=== PATIENT | male | born 1965 | race Caucasian/White ===

== ENCOUNTER → 2016-11-07 | Outpatient (CLI) | payer BC ==
--- NOTE | 2016-11-07 12:33 | CT ---
EXAMINATION TYPE: CT abdomen pelvis w con DATE OF EXAM: 11/07/2016 11:45 AM COMPARISON: NONE INDICATION: generalized abd pain DLP: 903 mGycm, Automated exposure control for dose reduction was used. CONTRAST: 100 ml mL of Omnipaque 300. Study performed with Oral Contrast TECHNIQUE: Axial images were obtained from above the diaphragm to the pubic rami in the axial plane a t 5 mm thick sections. Reconstructed images are reviewed on the computer in the coronal plane. FINDINGS: Limited CT sections are obtained the lung bases. The lung bases are clear. CT ABDOMEN: Liver: Tiny cyst within the inferior segment cortical region of the right tip of the liver may be pre sent. Liver otherwise appears unremarkable Spleen: Normal Pancreas: Normal Adrenal glands: The adrenal glands are normal. Gallbladder: Normal Kidneys: No masses are evident. No hydronephrosis is present. No cysts are present. Delayed images were obtained through the kidneys. A punctate cortical renal cyst within the mid right kidney is richard dent Aorta: Normal Inferior vena cava: Normal. CT PELVIS: Loops of bowel within the abdomen and pelvis are normal. There are loops of bowel which are incom pletely distended or lack oral contrast limiting their evaluation. Appendix: Not identified Urinary bladder: Normal. Genitourinary structures: Prostate is prominent. Osseous structures: No suspicious lytic or sclerotic lesions. IMPRESSIONS: 1. Prostate hypertrophy. 2. Tiny cortical renal cyst on the right with a tiny suspected cyst within the right tip of the liver
== END | disposition home or self-care (01) ==
LOC: RADCTMAIN 09:42
PROVIDERS: ATTEND Internal Medicine
DX: N40.0 Benign prostatic hyperplasia without lower urinary tract symptoms (principal); N28.1 Cyst of kidney, acquired
CPT/HCPCS: 74177; Q9967

== ENCOUNTER → 2016-12-05 | Outpatient (CLI) | payer BC ==
--- NOTE | 2016-12-05 10:04 | US ---
EXAMINATION TYPE: US prostate transrectal DATE OF EXAM: 12/05/2016 8:32 AM COMPARISON: Recent CT November 07, 2016 CLINICAL HISTORY: N429 disorder of prostate. CT on PACS stated prostate hypertrophy; no PSA lab value s available today; patient stated only voids once during the night This examination was performed using the transrectal probe. EXAM MEASUREMENTS: Gland Size: 4.1 x 4.6 x 3.2cm Volume: 31.7ml Predicted PSA: 3.81ng.ml Actual PSA (if available):not available for referring physician TECHNOLOGIST IMPRESSION: mildly enlarged as normal volume size is <30ml; Central Gland calcificatio ns are noted with cluster on right = 0.5 x 0.5 x 0.4cm; multiple Central Gland cysts are noted with l argest on left = 0.4 x 0.3 x 0.4cm. No hypoechoic areas are noted in Peripheral Zone. Initial images show seminal vesicles to appear grossly unremarkable. Prostate gland is slightly enlar ged in size confirmed on ultrasound. Some central zone calcification and tiny cysts are identified. N o worrisome hypoechoic nodule is evident. IMPRESSION: Prostate gland is slightly enlarged in size especially for patient's age, findings corre late with recent CT.
== END | disposition home or self-care (01) ==
LOC: RADUSMAIN 08:27
PROVIDERS: ATTEND Internal Medicine
DX: N42.9 Disorder of prostate, unspecified (principal)
CPT/HCPCS: 76872

== ENCOUNTER 2017-07-02 07:26 | Observation (INO) | payer BC ==
--- NOTE | 2017-07-02 07:41 | ED ---
General Adult HPI - General Chief complaint: Chest Pain Stated complaint: chest pain Time Seen by Provider: 07/02/17 07:40 Source: patient, RN notes reviewed, old records reviewed Mode of arrival: wheelchair Limitations: no limitations - History of Present Illness Initial comments: This is a 51-year-old male to yesterday for evaluation of chest pain. Chest pain shortness of breath. Patient has history of reflux, no history of high blood pressure and high cholesterol no diabetes strong family history. Patient has had prior admission and observation for cardiac evaluation before about 3 years ago. Patient states at that time stress tests was family understands within normal limits. Patient states that this time he does have chest pain, no fevers, no cough. No travel history no sick contacts. Patient also is suffering from shortness of breath. - Related Data Home Medications Medication Instructions Recorded Confirmed Lisdexamfetamine Dimesylate 30 mg PO DAILY 05/18/14 07/02/17 [Vyvanse] Omeprazole [Omeprazole] 20 mg PO BID 05/18/14 07/02/17 traZODone HCL [traZODone] 200 mg PO HS 05/18/14 07/02/17 Allergies Allergy/AdvReac Type Severity Reaction Status Date / Time No Known Allergies Allergy Verified 07/02/17 08:29 Review of Systems ROS Statement: Those systems with pertinent positive or pertinent negative responses have been documented in the HPI. ROS Other: All systems not noted in ROS Statement are negative. Past Medical History Past Medical History: GERD/Reflux Additional Past Medical History / Comment(s): adhd, gerd History of Any Multi-Drug Resistant Organisms: None Reported Past Surgical History: Adenoidectomy Additional Past Surgical History / Comment(s): abnormal growth removed in November (benign). 04/09 espogus stretched and abnormal cyst removed from head in March of 2013. Past Anesthesia/Blood Transfusion Reactions: No Reported Reaction Past Psychological History: ADD/ADHD Smoking Status: Light tobacco smoker Past Alcohol Use History: Occasional Past Drug Use History: Marijuana - Past Family History Father Family Medical History: Congestive Heart Failure (CHF), CVA/TIA, Myocardial Infarction ([place]) Additional Family Medical History / Comment(s): Father was an alcoholic. Patients grandpa and grandma both had heart attacks. Mother Family Medical History: Cancer, Thyroid Disorder Additional Family Medical History / Comment(s): lung cancer. General Exam Limitations: no limitations General appearance: alert, in no apparent distress Head exam: Present: atraumatic, normocephalic, normal inspection Eye exam: Present: normal appearance, PERRL, EOMI. Absent: scleral icterus, conjunctival injection, periorbital swelling ENT exam: Present: normal exam, mucous membranes moist Neck exam: Present: normal inspection. Absent: tenderness, meningismus, lymphadenopathy Respiratory exam: Present: normal lung sounds bilaterally. Absent: respiratory distress, wheezes, rales, rhonchi, stridor Cardiovascular Exam: Present: regular rate, normal rhythm, normal heart sounds. Absent: systolic murmur, diastolic murmur, rubs, gallop, clicks GI/Abdominal exam: Present: soft, normal bowel sounds. Absent: distended, tenderness, guarding, rebound, rigid Extremities exam: Present: normal inspection, full ROM, normal capillary refill. Absent: tenderness, pedal edema, joint swelling, calf tenderness Back exam: Present: normal inspection Neurological exam: Present: alert, oriented X3, CN II-XII intact Psychiatric exam: Present: normal affect, normal mood Skin exam: Present: warm, dry, intact, normal color. Absent: rash Course Vital Signs 07/02/17 07/02/17 07/02/17 07:28 07:37 07:46 Temperature 97.6 F Pulse Rate 74 67 Pulse Rate [ 65 Speech Correction Consultant ] Respiratory 20 18 Rate Blood Pressure 130/88 124/81 O2 Sat by Pulse 100 100 Oximetry 07/02/17 08:41 Temperature Pulse Rate 68 Pulse Rate [ Speech Correction Consultant ] Respiratory 18 Rate Blood Pressure 125/83 O2 Sat by Pulse 100 Oximetry - Reevaluation(s) Reevaluation #1: 07/02/17 09:30 At this point patient remains with chest pain EKG Findings - EKG Comments: EKG Findings:: Normal sinus rhythm rate of 71, OH 164, QRS 90, QTC 417. Repeat EKG shows no change in morphology, normal sinus rhythm rate of 71, OH 70, QRS 94 , QTC 419 Medical Decision Making - Medical Decision Making 51-year-old ER for evaluation of chest pain, history and family history of cardiac disease, patient admitted for cardiac observation, anticoagulation 0 troponins, initial EKG and troponin are negative - Lab Data Result diagrams: 07/02/17 07:43 07/02/17 07:43 Lab Results 07/02/17 07/02/17 07/02/17 Range/Units 07:43 07:43 07:43 WBC 5.0 (3.8-10.6) k/uL RBC 4.73 (4.30-5.90) m/uL Hgb 14.7 (13.0-17.5) gm/dL Hct 43.3 (39.0-53.0) % MCV 91.7 (80.0-100.0) fL MCH 31.2 (25.0-35.0) pg MCHC 34.0 (31.0-37.0) g/dL RDW 13.7 (11.5-15.5) % Plt Count 246 (150-450) k/uL Neutrophils % 63 % Lymphocytes % 25 % Monocytes % 5 % Eosinophils % 4 % Basophils % 1 % Neutrophils # 3.1 (1.3-7.7) k/uL Lymphocytes # 1.3 (1.0-4.8) k/uL Monocytes # 0.3 (0-1.0) k/uL Eosinophils # 0.2 (0-0.7) k/uL Basophils # 0.0 (0-0.2) k/uL PT (9.0-12.0) sec INR (<1.2) APTT (22.0-30.0) sec D-Dimer (<0.60) mg/L FEU Sodium 141 (137-145) mmol/L Potassium 4.2 (3.5-5.1) mmol/L Chloride 103 (98-107) mmol/L Carbon Dioxide 27 (22-30) mmol/L Anion Gap 11 mmol/L BUN 12 (9-20) mg/dL Creatinine 1.14 (0.66-1.25) mg/dL Est GFR (MDRD) Af Amer >60 (>60 ml/min/1.73 sqM) Est GFR (MDRD) Non-Af >60 (>60 ml/min/1.73 sqM) Glucose 96 (74-99) mg/dL Calcium 9.2 (8.4-10.2) mg/dL Magnesium 1.9 (1.6-2.3) mg/dL Total Bilirubin 0.6 (0.2-1.3) mg/dL AST 22 (17-59) U/L ALT 49 (21-72) U/L Alkaline Phosphatase 73 (38-126) U/L Total Creatine Kinase 101 (55-170) U/L CK-MB (CK-2) 1.2 (0.0-2.4) ng/mL CK-MB (CK-2) Rel Index 1.2 Troponin I <0.012 (0.000-0.034) ng/mL NT-Pro-B Natriuret Pep pg/mL Total Protein 7.0 (6.3-8.2) g/dL Albumin 4.3 (3.5-5.0) g/dL Lipase 111 (23-300) U/L 07/02/17 07/02/17 Range/Units 07:43 07:43 WBC (3.8-10.6) k/uL RBC (4.30-5.90) m/uL Hgb (13.0-17.5) gm/dL Hct (39.0-53.0) % MCV (80.0-100.0) fL MCH (25.0-35.0) pg MCHC (31.0-37.0) g/dL RDW (11.5-15.5) % Plt Count (150-450) k/uL Neutrophils % % Lymphocytes % % Monocytes % % Eosinophils % % Basophils % % Neutrophils # (1.3-7.7) k/uL Lymphocytes # (1.0-4.8) k/uL Monocytes # (0-1.0) k/uL Eosinophils # (0-0.7) k/uL Basophils # (0-0.2) k/uL PT 11.3 (9.0-12.0) sec INR 1.1 (<1.2) APTT 25.4 (22.0-30.0) sec D-Dimer 0.18 (<0.60) mg/L FEU Sodium (137-145) mmol/L Potassium (3.5-5.1) mmol/L Chloride (98-107) mmol/L Carbon Dioxide (22-30) mmol/L Anion Gap mmol/L BUN (9-20) mg/dL Creatinine (0.66-1.25) mg/dL Est GFR (MDRD) Af Amer (>60 ml/min/1.73 sqM) Est GFR (MDRD) Non-Af (>60 ml/min/1.73 sqM) Glucose (74-99) mg/dL Calcium (8.4-10.2) mg/dL Magnesium (1.6-2.3) mg/dL Total Bilirubin (0.2-1.3) mg/dL AST (17-59) U/L ALT (21-72) U/L Alkaline Phosphatase (38-126) U/L Total Creatine Kinase (55-170) U/L CK-MB (CK-2) (0.0-2.4) ng/mL CK-MB (CK-2) Rel Index Troponin I (0.000-0.034) ng/mL NT-Pro-B Natriuret Pep 12 pg/mL Total Protein (6.3-8.2) g/dL Albumin (3.5-5.0) g/dL Lipase (23-300) U/L - Radiology Data Radiology results: report reviewed (Test x-rays negative for acute disease), image reviewed Critical Care Time Critical Care Time: Yes Total Critical Care Time: 31 Disposition Clinical Impression: Chest pain, Unstable angina pectoris Disposition: ADMITTED IP TO THIS [facility] Condition: Undetermined Referrals: Jazmin Gonzalez MD [Primary Care Provider] - 1-2 days
[2017-07-02 08:00] LABS: Basophils % (A) 1 %; CH 32.2; CHCM 35.3; Eosinophils # (A) 0.2 k/uL (0-0.7); Eosinophils % (A) 4 %; HCT 43.3 % (39.0-53.0); HGB 14.7 gm/dL (13.0-17.5); Luc # (Auto) 0.11; Luc % (Auto) 2; Lymphocytes # (A) 1.3 k/uL (1.0-4.8); Lymphocytes % (A) 25 %; MCH 31.2 pg (25.0-35.0); MCV 91.7 fL (80.0-100.0); Mean Platelet Volume 8.6; Monocytes # (A) 0.3 k/uL (0-1.0); Monocytes % (A) 5 %; Neutrophils # (A) 3.1 k/uL (1.3-7.7); Neutrophils % (A) 63 %; RBC 4.73 m/uL (4.30-5.90); RDW 13.7 % (11.5-15.5); WBC (Perox) 4.89
[2017-07-02 08:11] LABS: ALT 49 U/L (21-72); AST 22 U/L (17-59); Alkaline Phosphatase 73 U/L (38-126); Anion Gap 11 mmol/L; Blood Urea Nitrogen 12 mg/dL (9-20); Calcium 9.2 mg/dL (8.4-10.2); Carbon Dioxide 27 mmol/L (22-30); Chloride 103 mmol/L (98-107); Glucose 96 mg/dL (74-99); Magnesium 1.9 mg/dL (1.6-2.3); Non-African American GFR(MDRD) >60 (>60 ml/min/1.73 sqM); Potassium 4.2 mmol/L (3.5-5.1); Sodium 141 mmol/L (137-145); Total Bilirubin 0.6 mg/dL (0.2-1.3)
--- NOTE | 2017-07-02 08:13 | XR ---
EXAMINATION TYPE: XR chest 2V DATE OF EXAM: 07/02/2017 COMPARISON: Prior chest x-ray 05/18/2014 HISTORY: Chest pain TECHNIQUE: Frontal and lateral views of the chest are obtained. FINDINGS: There is no focal air space opacity, pleural effusion, or pneumothorax seen. The cardiac silhouette size is within normal limits. There are overlying cardiac leads. There is a spinal curvatu re, patient may be slightly rotated. The osseous structures are intact. IMPRESSION: No acute cardiopulmonary process.
[2017-07-02 08:15] LABS: INR 1.1 (<1.2); Partial Thromboplastin Time 25.4 sec (22.0-30.0); Prothrombin Time 11.3 sec (9.0-12.0)
[2017-07-02 08:25] LABS: Creatine Kinase 101 U/L (55-170)
[2017-07-02 08:31] VITALS: RESP 18
[2017-07-02 08:38] LABS: Creatine Kinase MB 1.2 ng/mL (0.0-2.4); Troponin I <0.012 ng/mL (0.000-0.034)
[2017-07-02] MEDS ORDERED: NITROGLYCERIN SL TABS 0.4 MG TAB SUBLINGUAL PRN (09:28)
[2017-07-02] MEDS ORDERED: ASPIRIN 81 MG PO STA (09:28)
[2017-07-02] MEDS ORDERED: HEPARIN SODIUM,PORCINE 5,000 UNIT/ML 1 ML VIAL IV PRN (09:28)
[2017-07-02] MEDS ORDERED: HEPARIN SODIUM,PORCINE 5,000 UNIT/ML 1 ML VIAL IV ONE (09:28)
[2017-07-02] MEDS ORDERED: HEPARIN SODIUM,PORCINE/D5W PMX 25,000 UNIT in DEXTROSE/WATER 1 500ML.BAG IV SCH (09:30)
[2017-07-02] MEDS ORDERED: CYCLOBENZAPRINE 5 MG TAB PO STA (10:26)
[2017-07-02] MEDS ORDERED: NAPROXEN 250 MG TAB PO SCH (10:30)
[2017-07-02] MEDS: PANTOPRAZOLE 40 MG TABLET PO SCH ×2 (11:12→18:33)
--- NOTE | 2017-07-02 11:56 | CONS ---
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 Today, he lifted 3 gallons of water and brought them from the truck to his office and after that developed severe pain in the left anterior chest almost in the intercostal area and the pain is sharp in nature. It seems to be getting worse when he sits up and leans forward and when he also tightens his pectoral muscles. The pain seems musculoskeletal, very focal, reproducible with certain movements. He is a very active person and with his usual physical activity he has not experienced any type of chest pain either in the recent or remote past. About three and half years ago, he had a stress test which was normal. There was no evidence of ischemia. He walked 12 minutes of exercise. At the time of my evaluation, he still has pain when he moves in a certain position but otherwise no pain at rest. He has been initiated on heparin which I have advised that it be stopped since it is a musculoskeletal pain. His initial troponin and other labs are normal. Resting comfortably. EKG is unremarkable. PAST MEDICAL HISTORY: Unremarkable for any major medical problems. Negative stress test in April of 2014 at 12 minutes of exercise. MEDICATIONS: At home this includes: 1. Omeprazole. 2. Trazodone. ALLERGIES: No known drug allergies. REVIEW OF SYSTEMS: Unremarkable other than above mentioned facts. EXAMINATION: Blood pressure is 128/70, pulse rate 70 per minute, regular HEENT unremarkable. Fundus was not examined by me. NECK: Supple. No JVD. I do not hear carotid bruits. No thyromegaly. Heart exam revealed S1, S2 heard normally. No rub, murmur or gallop. LUNGS: Clear. Chest wall tenderness is evident especially on certain position when he tightens his pectoral muscles. ABDOMEN: Soft, nontender. No organomegaly. Lower extremities reveal normal pulses. No edema. Central nervous system is normal. EKG revealed sinus mechanism no acute changes. LABORATORY DATA: Revealed initial troponin and D-dimer are unremarkable. All other labs are normal. IMPRESSION: 1. Musculoskeletal chest pain. Probably pulled an intercostal muscle when he lifted a heavy object. 2. History of some gastroesophageal reflux type symptoms. 3. Negative stress Cardiolite scan at 12 minutes of exercise 3 years ago. RECOMMENDATIONS: I am recommending that we not use heparin, perform serial troponins, use a muscle relaxant and nonsteroidals and if he does well, possible discharge tomorrow. Discussed my thoughts in detail with the patient and and his nurse. Thank you very much for the consult. EDEL / JAYLAN: [id number] /
[2017-07-02 14:16] LABS: Creatine Kinase 81 U/L (55-170)
[2017-07-02 14:29] LABS: Creatine Kinase MB 0.9 ng/mL (0.0-2.4); Troponin I <0.012 ng/mL (0.000-0.034)
[2017-07-02] MEDS ORDERED: methylPREDNISolone SOD SUCCI 125 MG/2 ML VIAL IV STA (14:40)
[2017-07-02] MEDS ORDERED: KETOROLAC 30 MG/ML 1 ML VIAL IVP STA (14:40)
[2017-07-02 15:39] VITALS: BP 111/63; PULSE 78; TEMP 98.1
--- NOTE | 2017-07-02 15:54 | P.HPIM ---
History of Present Illness H&P Date: 07/02/17 Chief Complaint: Chest pain A 51-year-old gentleman with no significant history of CAD comes in the hospital with sudden onset chest pain this morning at 7 AM. Patient apparently is extremely busy with work and does have some physical aspects apparently was taken up to 3 gallon R prior to that and thereafter noticed sudden pain on the left side of his chest and with concern for ACS as he has positive family history came in to the hospital for further workup EKG does not show ST-T changes initially Cardiac enzymes 1 was also negative Patient has had a stress test about 3 years ago which was negative At the time of my patient patient continues to have chest pain however states that it's worse with sitting up deep breathing and using pressure. Review of systems 14 point review of systems as mentioned above Physical exam Gen. appearance oriented 3 in no distress Neck is supple no JVD Lungs good air entry clear to auscultation no rhonchi or wheezing Heart S1-S2 heard regular rate and rhythm no murmurs appreciated Abdomen is soft nontender no organomegaly bowel sounds are intact Neurologically cranial nerves II-12 grossly intact no focal motor or sensory deficits noted Skin no abnormalities appreciated Assessment and plan # ADHD #3 chest pain likely musculoskeletal #4 GERD Plan Patient be given a dose of steroid and IV NSAID. cardiology service evaluated the patient. Once cardiac enzymes are negative negative patient can likely go home to rest for the next 2 days and to continue taking high-dose NSAIDs. 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 04/09 espogus stretched and abnormal cyst removed from head in March of 2013. skin tags removed from back-benign Past Anesthesia/Blood Transfusion Reactions: No Reported Reaction Past Psychological History: ADD/ADHD Smoking Status: Former smoker Past Alcohol Use History: Occasional Past Drug Use History: Marijuana Additional Drug Use History / Comment(s): Marijuana use occasionally. - Past Family History Father Family Medical History: Congestive Heart Failure (CHF), CVA/TIA, Myocardial Infarction ([place]) Additional Family Medical History / Comment(s): Father was an alcoholic. Patients grandpa and grandma both had heart attacks. Mother Family Medical History: Cancer, Thyroid Disorder Additional Family Medical History / Comment(s): lung cancer. Medications and Allergies Home Medications Medication Instructions Recorded Confirmed Type Lisdexamfetamine Dimesylate 30 mg PO DAILY 05/18/14 07/02/17 History [Vyvanse] Omeprazole 20 mg PO BID 05/18/14 07/02/17 History traZODone HCL 200 mg PO HS 05/18/14 07/02/17 History Ibuprofen [Motrin] 800 mg PO TID #20 tab 07/02/17 Rx Allergies Allergy/AdvReac Type Severity Reaction Status Date / Time No Known Allergies Allergy Verified 07/02/17 08:29 Physical Exam Vitals: Vital Signs Temp Pulse Pulse Pulse Resp BP BP 07/02/17 15:38 98.1 F 78 18 111/63 07/02/17 11:45 07/02/17 10:34 97.9 F 65 18 120/80 07/02/17 09:56 98.0 F 68 18 121/83 07/02/17 08:41 68 18 125/83 07/02/17 07:46 65 07/02/17 07:37 67 18 124/81 07/02/17 07:28 97.6 F 74 20 130/88 Pulse Ox 07/02/17 15:38 97 07/02/17 11:45 97 07/02/17 10:34 98 07/02/17 09:56 100 07/02/17 08:41 100 07/02/17 07:46 07/02/17 07:37 100 07/02/17 07:28 100 Intake and Output 07/02/17 07/02/17 07/02/17 06:59 14:59 22:59 Intake Total 360 Balance 360 Intake: Oral 360 Other: Voiding Method Toilet Weight 71.4 kg Patient Weight 07/03/17 06:59 Weight 71.4 kg Results CBC & Chem 7: 07/02/17 07:43 07/02/17 07:43 Thrombosis Risk Factor Assmnt - Choose All That Apply Any of the Below Risk Factors Present?: Yes Each Factor Represents 1 point: Age 41-60 years Thrombosis Risk Factor Assessment Total Risk Factor Score: 1 Thrombosis Risk Factor Assessment Level: Low Risk
[2017-07-02 18:23] LABS: Creatine Kinase 80 U/L (55-170)
[2017-07-02 18:37] LABS: Creatine Kinase MB 0.8 ng/mL (0.0-2.4); Troponin I <0.012 ng/mL (0.000-0.034)
[2017-07-02] MEDS ORDERED: traZODone HCL 100 MG TAB PO SCH (21:00)
[2017-07-03] MEDS ORDERED: ASPIRIN 81 MG PO SCH (09:00)
[2017-07-03] MEDS ORDERED: ASPIRIN 325 MG TAB PO SCH (09:00)
[2017-07-03] MEDS ORDERED: ATORVASTATIN 80 MG TAB PO SCH (09:00)
== END 2017-07-02 18:51 | disposition home or self-care (01) ==
LOC: EC 07:26 → 3OBS 09:28
PROVIDERS: ADMIT Hospitalist; ATTEND Hospitalist
DX: R07.89 Other chest pain (principal); K21.9 Gastro-esophageal reflux disease without esophagitis; F17.200 Nicotine dependence, unspecified, uncomplicated; F90.9 Attention-deficit hyperactivity disorder, unspecified type; Z79.899 Other long term (current) drug therapy; Z79.1 Long term (current) use of non-steroidal anti-inflammatories (NSAID); Z82.49 Family history of ischemic heart disease and other diseases of the circulatory system; Z81.1 Family history of alcohol abuse and dependence; Z80.1 Family history of malignant neoplasm of trachea, bronchus and lung; F12.90 Cannabis use, unspecified, uncomplicated
CPT/HCPCS: 99291; 96375; 96374; 36415; 93005; 85379; 83880; 80053; 82550; 82553; 83690; 83735; 84484; 85025; 85610; 85730; 71020; G0378; J1644 ×2; J2930; J1885

== ENCOUNTER 2019-01-09 10:01 | Day surgery (SDC) | payer BC ==
[2019-01-07 09:17] VITALS: BMI 21.5
[~2019-01-09 10:01] MED LIST: LACTATED RINGERS 1,000 ML IV SCH; LIDOCAINE 1% 20 ML VIAL (10MG/ML) FOR IV START INTRADERMA PRN
[2019-01-09 10:30] VITALS: TEMP 98.2
[2019-01-09] MEDS ORDERED: LIDOCAINE 1% INJ 10MG/ML (20 ML MDV) ONE (11:33)
[2019-01-09] MEDS ORDERED: PROPOFOL 10 MG/ML 20 ML VIAL IV ONE (11:33)
--- NOTE | 2019-01-09 11:55 | P.PCN ---
Date of Procedure: 01/09/19 Procedure(s) Performed: BRIEF HISTORY: Patient is a 53-year-old pleasant white male, scheduled for an elective colonoscopy as a part of screening for colon neoplasia. PROCEDURE PERFORMED: Colonoscopy with biopsy. PREOPERATIVE DIAGNOSIS: Screening for colon cancer. IV sedation per Anesthesia. PROCEDURE: After informed consent was obtained, the patient, was brought into the endoscopy unit. IV sedation was administered by Anesthesia under continuous monitoring. Digital rectal examination was normal. Initially the Olympus CF-160 flexible video colonoscope was then inserted in the rectum, gradually advanced into the cecum without any difficulty. Careful examination was performed as the scope was gradually being withdrawn. Ileocecal valve and the appendiceal orifice were visualized and appeared normal. Prep was excellent. Mucosa of the cecum, ascending colon, transverse colon, descending colon, sigmoid colon, and rectum appeared normal. In the distal sigmoid colon there were 2 small sessile polyps measuring 2-3 mm in size both of which were removed by cold biopsy. Retroflexion was performed in the rectum and no lesions were seen. The patient tolerated the procedure well. IMPRESSION: 2- 3 mm sessile polyps 2 in the distal sigmoid colon status post removal by cold biopsy. RECOMMENDATIONS: Findings of this examination were discussed with the patient as well as his family. He was advised to follow with the biopsy results. If the biopsy shows an adenoma, he can have a repeat colonoscopy in 5 years.
[2019-01-09 12:12] VITALS: RESP 15
[2019-01-09 12:36] VITALS: BP 106/73; PULSE 79
== END 2019-01-09 12:34 | disposition home or self-care (01) ==
LOC: ORWHC2ENDO 10:01
PROVIDERS: ATTEND Internal Medicine Gastroenterology
DX: Z12.11 Encounter for screening for malignant neoplasm of colon (principal); K63.5 Polyp of colon; K21.9 Gastro-esophageal reflux disease without esophagitis; F90.9 Attention-deficit hyperactivity disorder, unspecified type; Z79.1 Long term (current) use of non-steroidal anti-inflammatories (NSAID); Z79.899 Other long term (current) drug therapy
CPT/HCPCS: 88305; 45380; J2001; J2704

== ENCOUNTER → 2019-02-05 | Outpatient (CLI) | payer BC ==
--- NOTE | 2019-02-05 13:21 | XR ---
EXAMINATION TYPE: XR chest 2V DATE OF EXAM: 02/05/2019 COMPARISON: Prior chest x-ray 07/02/2017 HISTORY: Right lung nodule TECHNIQUE: Frontal and lateral views of the chest are obtained. FINDINGS: Biapical pleural thickening is stable. There is no focal air space opacity, pleural effusi on, or pneumothorax seen. The cardiac silhouette size is within normal limits. The osseous structu res are intact. IMPRESSION: No acute cardiopulmonary process.
== END | disposition home or self-care (01) ==
LOC: RADXRYALE 10:22
PROVIDERS: ATTEND Internal Medicine
DX: R91.1 Solitary pulmonary nodule (principal)
CPT/HCPCS: 71046

== ENCOUNTER 2024-07-29 08:11 | Day surgery (SDC) | payer BC ==
[2024-07-28 10:23] VITALS: BMI 21.4
[2024-07-29] MEDS: IV FLUID CONTINUATION 1,000 ML IV ONE (08:22)
[2024-07-29 08:28] VITALS: TEMP 98
[2024-07-29] MEDS: LACTATED RINGERS 1,000 ML IV SCH (08:36)
[2024-07-29] MEDS ORDERED: PROPOFOL 10 MG/ML 20 ML VIAL IV ONE (09:07)
--- NOTE | 2024-07-29 09:28 | P.PCN ---
Date of Procedure: 07/29/24 Procedure(s) Performed: BRIEF HISTORY: Patient is a 58-year-old pleasant white male scheduled for an elective colonoscopy as a part of screening for colon cancer. PROCEDURE PERFORMED: Colonoscopy with snare polypectomy. PREOPERATIVE DIAGNOSIS: Screening for colon cancer. IV sedation per Anesthesia. PROCEDURE: After informed consent was obtained, the patient, was brought into the endoscopy unit. IV sedation was administered by Anesthesia under continuous monitoring. Digital rectal examination was normal. Initially the Olympus CF-160 flexible video colonoscope was then inserted in the rectum, gradually advanced into the cecum without any difficulty. Careful examination was performed as the scope was gradually being withdrawn. Ileocecal valve and the appendiceal orifice were visualized and appeared normal. Prep was excellent. Mucosa of the cecum, ascending colon, appeared normal. The transverse colon there was a 5 mm polyp that was removed by cold snare polypectomy. Rest of the transverse colon, descending colon, sigmoid colon, and rectum appeared normal. Distal sigmoid colon there was a 3 mm sessile polyp removed by cold snare polypectomy. Scattered sigmoid diverticulosis seen. Retroflexion was performed in the rectum and no lesions were seen. The patient tolerated the procedure well. IMPRESSION: 5 mm transverse colon polyp status post cold snare polypectomy 3 mm distal sigmoid colon polyp status post snare polypectomy Scattered sigmoid diverticulosis RECOMMENDATIONS: Findings of this examination were discussed with the patient as well as his family. He was advised to follow with the biopsy results. If the biopsy reveals adenoma he can have repeat colonoscopy in 5 years
[2024-07-29 09:55] VITALS: BP 102/68; PULSE 77; RESP 18
== END 2024-07-29 10:16 | disposition home or self-care (01) ==
LOC: ORWHC2ENDO 08:11
PROVIDERS: ATTEND Internal Medicine Gastroenterology
DX: Z12.11 Encounter for screening for malignant neoplasm of colon
CPT/HCPCS: 45385; 88305